=== PATIENT | female | born 1990 | race Caucasian/White ===

== ENCOUNTER 2024-07-13 11:51 | Emergency (ER) | payer MEDICAID, OTHER ==
[~2024-07-13] VITALS: Ht 177.8 cm; Wt 46.5 kg
[2024-07-13 12:31] LABS: Urine Bacteria MOD /hpf (None Seen); Urine Blood Negative /uL (Negative); Urine Clarity Turbid (Clear); Urine Color Colorless (Yellow); Urine Mucus FEW (None Seen); Urine Protein, UAD TRACE (Negative); Urine Specific Gravity 1.014 (1.001-1.035); Urine Urobilinogen Normal (Negative); Urine WBC 26 /hpf (0 - 5)
[2024-07-13] MEDS: THIAMINE 100mg/ml INJ (200mg/2ml VIAL) IV ONE (12:43)
[2024-07-13] MEDS: ONDANSETRON HCL 4 MG/2 ML VIAL IV ONE (12:43)
[2024-07-13] MEDS: SODIUM CHLORIDE 0.9% 2,000 ML IV ONE (12:43)
[2024-07-13 13:02] LABS: Basophils # (auto) 0 10 ^3/uL (0-0.2); Eosinophils # (auto) 0.1 10 ^3/uL (0-0.8); Eosinophils % (auto) 3.1 % (0.0-7.0); Monocytes # (auto) 0.5 10 ^3/uL (0-1.3); Red Cell Distribution Width 13.7 % (11.8-14.3); White Blood Cell 4.3 10^3/uL (4.4-10.8)
[2024-07-13 13:04] LABS: Basophils % (auto) 0.7 % (0.0-2.0); Hematocrit 33.1 % (36.0-46.0); Hemoglobin 11.1 g/dL (12.2-16.2); Lymphocytes % (auto) 23.5 % (10.0-50.0); Mean Corpuscular Hemoglobin 25.2 pg (28.0-32.0); Mean Corpuscular Hgb Conc. 33.5 g/dL (32.0-36.0); Mean Corpuscular Volume 75.4 fL (80.0-100.0); Monocytes % (auto) 12.7 % (0.0-12.0); Neutrophils # (auto) 2.6 10 ^3/uL (1.6-8.6); Nucleated Red Blood Cells % 0.2 %; Platelet Count (auto) 164 10^3/uL (140-450); Red Blood Cells 4.38 10^6/uL (4.0-5.20)
[2024-07-13 13:22] LABS: Alkaline Phosphatase 40 U/L (46-116); Calcium 8.8 mg/dL (8.7-10.4); Carbon Dioxide 25 mmol/L (20-31); Chloride 105 mmol/L (98-107); Glucose 97 mg/dL (74-106); Magnesium 1.9 mg/dL (1.6-2.6); Potassium 3.8 mmol/L (3.5-5.1)
[2024-07-13 13:23] LABS: Albumin 4.2 g/dL (3.2-4.8); Anion Gap 6 (5-15); Aspartate Aminotransferase < 8 U/L (13-40); BUN/Creatinine Ratio 13.2 (10.0-20.0); Bilirubin, Total 0.3 mg/dL (0.2-1.0); Blood Urea Nitrogen 7 mg/dL (9-23); Phosphorus 3.4 mg/dL (2.4-5.1); Sodium 136 mmol/L (136-145); Total Protein 6.7 g/dL (5.7-8.2)
[2024-07-13 13:36] LABS: Alanine Aminotransferase < 9 U/L (7-40)
[2024-07-13] MEDS: cefTRIAXone 1GM/50ML D5W 50 ML IV ONE (14:34)
[2024-07-13] MEDS ORDERED: CEFD300C2 PO (14:56)
[2024-07-13 15:00] VITALS: BP 106/70; PULSE 70; RESP 16; TEMP 98; O2SAT 100
== END 2024-07-13 15:08 | disposition home or self-care (01) ==
LOC: ER 12:05 → EEVIPCON 12:05 → ER 15:08
DX: O23.41 Unspecified infection of urinary tract in pregnancy, first trimester (principal); R10.2 Pelvic and perineal pain; O21.0 Mild hyperemesis gravidarum; N39.0 Urinary tract infection, site not specified; E86.0 Dehydration; Z3A.01 Less than 8 weeks gestation of pregnancy
CPT/HCPCS: 36415; 76801; 80053; 81001; 83735; 84100; 84702; 85025; 96361; 96365; 96375; 99285; J0696; J2405; J3411; J7030

== ENCOUNTER 2024-08-14 11:48 | Emergency (ER) | payer MEDICAID ==
[~2024-08-14] VITALS: Ht 180.3 cm; Wt 50.5 kg
[~2024-08-14 11:48] MED LIST: CEFD300C2 PO
[2024-08-14 12:07] VITALS: BP 111/71; PULSE 93; RESP 16; TEMP 98.4; O2SAT 98
[2024-08-14] MEDS ORDERED: ACET500T58 PO (12:17)
[2024-08-14] MEDS ORDERED: LIDO2SOL26 MT (12:17)
[2024-08-14] MEDS ORDERED: CIPR1SUS8 OT (12:17)
--- NOTE | 2024-08-14 12:17 | ED.PDOC ---
Eye-HPI HPI Comments 34 year old currently 12 weeks w/ no pertinent medical hx presents for unilateral left ear pain x 4 days Associated with sore throat, migraines, and dizziness Ear pain rated moderate, tried OTC Tylenol 1000 mg with some improvement. Ear pain is described as pressure and constant Sore throat 5/10 and hurts to swallow saliva Migraine is located to the left side and associated with left eye pressure. Drinks approx: 10 cups of water per day Denies fever, chills, night sweats Denies persistent nausea Denies vomiting Denies thunderclap headache Denies photophobia, phonophobia Denies head trauma around the time headache started Denies family history of brain issues persistent headaches Denies taking any blood thinner medication Denies vision/hearing changes Denies focal loss of strength/sensation or changes in speech Chief Complaint: Earache Time Seen by MD: 11:51 Reviewed Notes: Nurses Notes, Medications, Allergies Allergies: Coded Allergies: NO KNOWN ALLERGIES (Unverified , 07/13/24) Home Meds Active Scripts Acetaminophen (Acetaminophen) 500 Mg Tab, 500 MG PO QIDP for 14 Days, #56 TAB 0 Refills Prov:BONY RODRIGUEZ NP 08/14/24 Lidocaine HCl (Mouth-Throat) (Lidocaine HCl Viscous) 2 % Brandi, 15 ML MT TID for 3 Days, #300 ML 0 Refills Prov:BONY RODRIGUEZ NP 08/14/24 Ciprofloxacin-Dexamethasone (Ciprofloxacin/Dexamethaso 0.3-0.1 %) 1 [place], 4 DROP OT BID for 7 Days, #5 ML 0 Refills Prov:BONY RODRIGUEZ NP 08/14/24 Cefdinir (Cefdinir) 300 Mg Cap, 1 CAP PO BID for 5 Days, #14 CAP Prov:HELENA GOLDMAN MD 07/13/24 Information Source: Patient Past Medical History PAST MEDICAL HISTORY: Denies Surgical History: Denies all surgeries LEADERSHIP DEVELOPMENT MANAGER History: No Pertinent LEADERSHIP DEVELOPMENT MANAGER History Family History Family History: Reviewed,noncontributory to illness Social History Smoker: Non-Smoker Alcohol: Denies ETOH Use Drugs: Denies Drug Use Lives In: Home All Other Systems: Reviewed and Negative (Per HPI) Physical Exam General Appearance: No Apparent Distress, Normal HEENT: Head (Normocephalic atraumatic), Normal ENT Inspection, PERRL/EOMI, Pharynx Normal, TMs Normal Neck: Full Range of Motion, Non-Tender, Normal, Normal Inspection Respiratory: Chest Non-Tender, Lungs Clear, No Accessory Muscle Use, No Res piratory Distress, Normal Breath Sounds Cardiovascular: No Murmur, No Gallop, Regular Rate/Rhythm Breast Exam: Deferred Gastrointestinal: No Organomegaly, Non Tender, No Pulsatile Mass, Normal Bowel Sounds, Soft Genitalia: Deferred Pelvic: Deferred Rectal: Deferred Extremities: No calf tenderness, Normal capillary refill, Normal inspection, Normal range of motion, Non-tender, No pedal edema Musculoskeletal : Apperance: Normal Neurologic: Alert, warping machine operator II-XII nml as Tested, No Motor Deficits, Normal Affect, Normal Mood, No Sensory Deficits Cerebellar Function: Normal Reflexes: Normal Skin: Dry, Normal Color, Warm Lymphatic: No Adenopathy Was a procedure done? Was a procedure done?: No EENT DIFF Eye: Other Sore Throat: Streptococcal, Viral Pharyngitis, URI, Other X-Ray, Labs, Meds, VS Vital Signs Date Time Temp Pulse Resp B/P (MAP) Pulse Ox O2 Delivery O2 Flow Rate FiO2 08/14/24 12:07 93 16 98 Room Air 08/14/24 12:07 98.4 93 16 111/71 (84) 98 98.4 08/14/24 11:52 98.4 93 16 111/71 (84) 98 X-Ray, Labs, Meds, VS Comment History and physical consistent of URI Take medication as prescribed No concerns for pneumonia at this time. No risk factors. No indication for antibiotics Discussed that cough can linger up to 6 weeks after viral URI ED precautions if cough does not alleviate or if cough worsens Supportive care and return precautions discussed Counseled viral infection and explained that antibiotics would not be helpful in resolving the illness sooner. Recommended vitamin C, rest, handwashing, and symptomatic care. Expect 2-week course with possibly of cough lingering up to 6 weeks. Nonpharmacological remedies for fluids has been recommended as well Patient is stable for discharge at this time. External notes reviewed. Test results and diagnostic imaging interpreted. All diagnostic findings, discharge care, education and instructions provided Follow-up with PCP in 2 to 3 days Patient verbalized understanding and agreed to treatment plan Vital signs stable, afebrile, no acute distress noted Patient ambulatory with strong steady gait Advised to return precautions for any new or worsening symptoms, return to ER immediately for re-evaluation Patient is aware that the purpose of this visit was for an acute medical emergency requiring emergent stabilization. Chronic conditions, including malignancies have not been ruled out. Patient is instructed to follow up with PCP as directed and discharge instructions for continued care and workup. If unable to arrange follow-up, patient is to return to the emergency department for reassessment. Patient (parent or legal guardian if applicable) was given verbal and written discharge instructions and acknowledges understanding. Time of 1ST Reevaluation: 12:00 Reevaluation 1ST: Improved Patient Education/Counseling: Diagnosis, Treatment Family Education/Counseling: Diagnosis, Treatment Departure 1 Departure Time of Disposition: 12:15 Impression: Primary Impression: Otalgia of left ear Additional Impression: Throat pain Disposition: HOME / SELF CARE / HOMELESS Condition: Stable e-Prescriptions Acetaminophen (Acetaminophen) 500 Mg Tab 500 MG PO QIDP for 14 Days, #56 TAB 0 Refills Prov: BONY RODRIGUEZ NP 08/14/24 Lidocaine HCl (Mouth-Throat) (Lidocaine HCl Viscous) 2 % Brandi 15 ML MT TID for 3 Days, #300 ML 0 Refills Prov: BONY RODRIGUEZ NP 08/14/24 Ciprofloxacin-Dexamethasone (Ciprofloxacin/Dexamethaso 0.3-0.1 %) 1 [place] 4 DROP OT BID for 7 Days, #5 ML 0 Refills Prov: BONY RODRIGUEZ NP 08/14/24 Discharged With: Self Critical Care Note Critical Care Time?: No Stability Stability form required: No Heart Score Heart Score: Heart Score Response (Comments) Value History N/A 0 EKG N/A 0 Age N/A 0 Risk Factors N/A 0 Troponin N/A 0 Total 0 BONY RODRIGUEZ NP Aug 14, 2024 12:17
== END 2024-08-14 12:21 | disposition home or self-care (01) ==
LOC: EEVIPCON 11:50 → ER 11:50
DX: O99.891 Other specified diseases and conditions complicating pregnancy (principal); H92.02 Otalgia, left ear; R07.0 Pain in throat; Z3A.12 12 weeks gestation of pregnancy; Z79.899 Other long term (current) drug therapy

== ENCOUNTER 2024-09-16 07:59 | Emergency (ER) | payer MEDICAID ==
[~2024-09-16] VITALS: Ht 177.8 cm; Wt 51.1 kg
[~2024-09-16 07:59] MED LIST changes: +ACET500T58 PO; +CIPR1SUS8 OT; +LIDO2SOL26 MT
[2024-09-16] MEDS: SODIUM CHLORIDE 0.9% 2,000 ML IV ONE (08:25)
[2024-09-16 08:27] VITALS: BP 101/59; PULSE 88; RESP 18; O2SAT 100
[2024-09-16 08:39] LABS: Urine Bacteria None Seen /hpf (None Seen)
[2024-09-16 09:00] LABS: Urine Blood Negative /uL (Negative); Urine Clarity Turbid (Clear); Urine Color Yellow (Yellow); Urine Mucus FEW (None Seen); Urine Protein, UAD 1+ (Negative); Urine Specific Gravity 1.024 (1.001-1.035); Urine Urobilinogen Normal (Negative); Urine WBC 8 /hpf (0 - 5); Urine pH 5.5 (5.0-9.0)
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
== END 2024-09-16 11:33 | disposition home or self-care (01) ==
LOC: EEVIPCON 07:59 → ER 07:59
DX: O99.891 Other specified diseases and conditions complicating pregnancy (principal); R55 Syncope and collapse; R81 Glycosuria; E86.0 Dehydration; Z3A.17 17 weeks gestation of pregnancy; Z98.890 Other specified postprocedural states; Z79.899 Other long term (current) drug therapy
CPT/HCPCS: 81001; 96360; 96361; 99283; J7030

== ENCOUNTER 2024-12-25 08:32 | Observation (INO) | payer MEDICAID ==
[~2024-12-25] VITALS: Ht 180.3 cm; Wt 60.8 kg
[2024-12-25] MEDS ORDERED: LACTATED RINGER'S 1,000 ML IV ONE ×2 (09:15)
--- NOTE | 2024-12-25 10:29 | DVH ---
BIOPHYSICAL PROFILE HISTORY: decreased movement, dizziness, possible srom TECHNIQUE: Multiple transabdominal real-time grayscale sonographic images through the gravid uterus of the fetus with duplex Doppler color flow and M-mode spectral analysis FINDINGS: BIOPHYSICAL PROFILE: breathing score: 2 movement score: 2 tone score: 2 Quantitative JARED score: 2 (JARED: 16.5 Cm.) Total score: 8 The cervix not well visualized. Single live fetus in breech presentation. heart rate 136 beats per minute. Right lateral placenta without previa or abruption IMPRESSION: Biophysical profile score: 8/8
[2024-12-25 11:05] LABS: Fern Testing Negative
--- NOTE | 2024-12-25 12:30 | DVHDS2 ---
Physician Discharge Progress N Final Diagnosis: Encounter for surveillance Suspected PROM not found Secondary Diagnosis: Hx of seizures Operations or Procedures: Operations or Procedures NST and Ultrasound PATIENT: ERICK BEAVER DONNACCT: [id number] UNIT: [id number] : 1990 LOC: LD ROOM / BED: TRIAGE1 / A AGE / SEX: 34 / F ADM STATUS: ADM IN SERVICE 0905 ORDERING PHYSICIAN: DAISHA MEEKS DO PROCEDURE(s): BPP - BIOPHYSICAL PROFILE REASON: decreased movement, dizziness, possible srom ORDER NUMBER(s): [id number], ACCESSION NUMBER(s): [id number] BIOPHYSICAL PROFILE HISTORY: decreased movement, dizziness, possible srom TECHNIQUE: Multiple transabdominal real-time grayscale sonographic images through the gravid uterus of the fetus with duplex Doppler color flow and M-mode spectral analysis FINDINGS: BIOPHYSICAL PROFILE: breathing score: 2 movement score: 2 tone score: 2 Quantitative JARED score: 2 (JARED: 16.5 Cm.) Total score: 8 The cervix not well visualized. Single live fetus in breech presentation. heart rate 136 beats per minute. Right lateral placenta without previa or abruption IMPRESSION: Biophysical profile score: 8/8 ATED BY: ANASTASIYA RECINOS MD DICTATED DATE/TIME: 12/25/24 1026 Commentary: Commentary Glucose normal VS normal status reassuring Condition on Discharge: Stable Disposition: Home Discharge Instructions: Diet: Regular Activity: No Restrictions, As Tolerated Follow Up/Referral: Keep Appt w/ Primary INSTRUMENTATION FITTER MD (outside MD) within 1 wk or sooner Medications: No new meds Follow Up Care: Discharge Statement: "Patient was advised to return to the ER or call 911 if any headaches, dizziness, shortness of breath, chest pain, abdominal pain, bleeding, fevers, or worsening of medical condition. Patient was counseled about treatment plan, medications, possible side effects, patientverbalized understanding. All questions were answered to the best of my ability. This discharge took greater then 30 minutes in planning, reviewing documentation, counseling the patient, and discussing with other team members." Visit Coding OBGYN Date of Service: Dec 25, 2024 Billing Provider: DAISHA MEEKS DO FOURTH GRADE TEACHER Common Visit Codes: 87330-JAC/OBS SAME DATE (HIGH) FOURTH GRADE TEACHER Procedure Codes: 63124-85- NON-STRESS TEST DAISHA MEEKS DO Dec 25, 2024 12:30
== END 2024-12-25 11:54 | disposition home or self-care (01) ==
LOC: LDRP 08:32
PROVIDERS: ADMIT Obstetrics & Gynecology; ATTEND Obstetrics & Gynecology
DX: O36.8130 Decreased fetal movements, third trimester, not applicable or unspecified (principal); O26.893 Other specified pregnancy related conditions, third trimester; H53.8 Other visual disturbances; R42 Dizziness and giddiness; O21.9 Vomiting of pregnancy, unspecified; Z87.891 Personal history of nicotine dependence; Z3A.31 31 weeks gestation of pregnancy; Z86.69 Personal history of other diseases of the nervous system and sense organs
CPT/HCPCS: 59025; 76819; 81002; 82948; 82962; 84112; 94760; G0378; Q0114